=== PATIENT | female | born 1995 | race Caucasian/White ===

== ENCOUNTER 2016-12-27 03:47 | Emergency (ER) | payer OTHER ==
[~2016-12-27] VITALS: Ht 162.6 cm; Wt 52.2 kg
--- NOTE | 2016-12-27 03:47 | NUR ---
PT [facility]. TAKEN TO BED 7
[2016-12-27 03:54] VITALS: BP 115/72
--- NOTE | 2016-12-27 04:26 | NUR ---
Patient being evaluated by physician at bedside.
[2016-12-27] MEDS ORDERED: MAGNESIUM SULFATE 50% 1000 MG/2 ML VIAL IV ONE (04:48)
[2016-12-27] MEDS ORDERED: MULTIVITAMIN-12 10 ML VIAL IV ONE (04:48)
[2016-12-27] MEDS ORDERED: FOLIC ACID 5 MG/ML SYR ONE (04:48)
[2016-12-27] MEDS ORDERED: THIAMINE 200 MG/2 ML VIAL ONE (04:48)
[2016-12-27] MEDS: MULTIVITAMIN-12 10 ML, THIAMINE 100 MG, MAGNESIUM SULFATE 50% 2,000 MG, FOLIC ACID 5 MG... IV ONE ×5 (04:56)
[2016-12-27 04:59] LABS: HEMATOCRIT 38.4 % (36-48); HEMOGLOBIN 12.9 g/dL (12.0-16.0); MEAN CORPUSCULAR HEMOGLOBIN 31 pg (27-31); MEAN CORPUSCULAR HGB CONC 34 g/dL (33-37); MEAN CORPUSCULAR VOLUME 93 fL (80-94); PLATELET COUNT (AUTO) 215 K/uL (140-450); RED BLOOD CELL COUNT(AUTO) 4.15 MIL/uL (4.20-5.40); RED CELL DISTRIBUTION WIDTH 12.3 % (11.6-13.7); WHITE BLOOD COUNT (AUTO) 7.5 K/uL (4.5-11.0)
--- NOTE | 2016-12-27 05:00 | NUR ---
Patient appears to be resting comfortably in bed. Vital Signs within normal limits. Respirations even and unlabored.
[2016-12-27 05:05] LABS: ANION GAP 14.2 (8-16); CARBON DIOXIDE 24.4 mmol/L (21-32); CREATININE 0.6 mg/dL (0.6-1.3); POTASSIUM 3.6 mmol/L (3.5-5.1)
[2016-12-27 05:11] LABS: ALBUMIN 4.2 g/dL (3.4-5.0); TOTAL BILIRUBIN 0.5 mg/dL (0.0-1.0)
[2016-12-27 05:17] LABS: LYMPHOCYTES % (MANUAL) 20 % (20-46); MONOCYTES % (MANUAL) 4 % (5-12)
--- NOTE | 2016-12-27 07:10 | NUR ---
ASSUMED CARE FROM NIGHT RN. PATIENT APPEARS TO BE RESTING COMFOTABLY IN BED. STILL WITH BANANA BAG INFUSING.
--- NOTE | 2016-12-27 09:21 | NUR ---
Dr. Flores evaluating patient at bedside.
[2016-12-27 09:56] VITALS: BP 115/74
--- NOTE | 2016-12-27 09:58 | NUR ---
Patient discharged with v/s stable PICKED UP BY FRIENDS. Written and verbal after care instructions given and explained. Patient verbalized understanding. Ambulatory with steady gait. All questions addressed prior to discharge. Advised to follow up with PMD.
== END 2016-12-27 09:58 | disposition home or self-care (01) ==
LOC: MED 03:47
DX: F10.129 Alcohol abuse with intoxication, unspecified (principal)
CPT/HCPCS: 36415; 80053; 81025; 85025; 96365; 96366; 99285; A9153; G0482; J3411; J3475; J3490; J7030